=== PATIENT | male | born 1995 | race Native Hawaiian/Other Pacific Islander ===

== ENCOUNTER 2016-10-15 09:37 | Emergency (ER) | payer OTHER ==
[~2016-10-15] VITALS: Ht 170.2 cm; Wt 74.4 kg
== END 2016-10-15 10:42 | disposition home or self-care (01) ==
LOC: ED 09:37
DX: R11.2 Nausea with vomiting, unspecified (principal); T78.1XXA Other adverse food reactions, not elsewhere classified, initial encounter
CPT/HCPCS: 96372; 99282; J2550

== ENCOUNTER 2016-10-30 13:47 | Emergency (ER) | payer OTHER ==
[~2016-10-30] VITALS: Ht 170.2 cm; Wt 70.8 kg
== END 2016-10-30 14:30 | disposition home or self-care (01) ==
LOC: ED 13:47
DX: J06.9 Acute upper respiratory infection, unspecified (principal)
CPT/HCPCS: 99281

== ENCOUNTER 2016-12-25 14:07 | Emergency (ER) | payer OTHER ==
[~2016-12-25] VITALS: Ht 170.2 cm; Wt 63.5 kg
[2016-12-25 15:37] LABS: PLATELET COUNT 271 K/uL (142-355)
== END 2016-12-25 14:44 | disposition home or self-care (01) ==
LOC: ED 14:07
DX: J03.90 Acute tonsillitis, unspecified (principal)
CPT/HCPCS: 85027; 87081; 87880; 96372; 99282; J0696

== ENCOUNTER 2019-06-28 03:24 | Emergency (ER) | payer OTHER ==
[~2019-06-28] VITALS: Ht 170.2 cm; Wt 81.6 kg
[2019-06-28 04:01] LABS: PLATELET COUNT 260 K/uL (142-355)
[2019-06-28 04:13] LABS: POTASSIUM 3.6 mmol/L (3.6-5.2)
[2019-06-28 05:45] VITALS: BP 142/74; TEMP 97.9
== END 2019-06-28 05:45 | disposition home or self-care (01) ==
LOC: ED 03:24
PROVIDERS: Hospitalist
DX: K59.00 Constipation, unspecified (principal); F12.10 Cannabis abuse, uncomplicated; F15.10 Other stimulant abuse, uncomplicated
CPT/HCPCS: 36415; 80053; 80307; 80320; 81000; 82150; 83690; 85027; 96360; 96375; 99284; J2405

== ENCOUNTER 2019-09-02 11:49 | Emergency (ER) | payer OTHER ==
[~2019-09-02] VITALS: Ht 170.2 cm; Wt 78.5 kg
[2019-09-02 11:49] VITALS: TEMP 98.8
[2019-09-02 12:23] LABS: PLATELET COUNT 313 K/uL (142-355)
[2019-09-02 12:29] LABS: POTASSIUM 3.4 mmol/L (3.6-5.2); SODIUM 137 mmol/L (136-145)
[2019-09-02 12:46] LABS: PARTIAL THROMBOPLASTIN TIME 24.8 SECONDS (24.5-33.6)
[2019-09-02 14:03] VITALS: BP 109/83
== END 2019-09-02 14:03 | disposition home or self-care (01) ==
LOC: ED 11:52
PROVIDERS: Hospitalist
DX: R07.89 Other chest pain (principal); R09.1 Pleurisy; J40 Bronchitis, not specified as acute or chronic; I49.8 Other specified cardiac arrhythmias; F17.210 Nicotine dependence, cigarettes, uncomplicated
CPT/HCPCS: 36415; 80053; 82550; 83880; 84484; 85027; 85379; 85610; 85730; 87502; 87651; 93005; 94664; 96374; 96375; 99284; J1885; J2930

== ENCOUNTER 2020-07-04 18:30 | Emergency (ER) | payer OTHER ==
[~2020-07-04] VITALS: Ht 170.2 cm; Wt 78.5 kg
[2020-07-04 21:04] LABS: PLATELET COUNT 280 K/uL (142-355)
[2020-07-04 21:25] LABS: POTASSIUM 4.3 mmol/L (3.6-5.2)
[2020-07-04 21:35] VITALS: BP 120/36; TEMP 98
== END 2020-07-04 21:35 | disposition home or self-care (01) ==
LOC: ED 18:39
PROVIDERS: Emergency Medicine Emergency Medical Services
DX: N23 Unspecified renal colic (principal)
CPT/HCPCS: 36415; 80048; 80307; 81000; 85027; 96360; 96375; 99284; J1885; J2270; J2405